=== PATIENT | female | born 1950 | race African-American/Black ===

== ENCOUNTER 2018-01-23 04:33 | Emergency (ER) | payer MEDICARE, OTHER ==
[~2018-01-23] VITALS: Ht 160 cm; Wt 100.0 kg
[2018-01-23] MEDS ORDERED: ONDANSETRON HCL 4MG/2ML VIAL IV STA (06:31)
[2018-01-23] MEDS ORDERED: SODIUM CHLORIDE 0.9% 1,000 ML IV ONE (06:31)
[2018-01-23 07:02] LABS: BASOPHILS % 0.7 % (0.0-2.0); EOSINOPHILS % 1.8 % (0.0-5.0); HEMATOCRIT. 39.5 % (36.0-48.0); HEMOGLOBIN. 13.6 g/dL (12.0-16.0); LYMPHOCYTES % 35.2 % (20.0-50.0); MEAN CORPUSCULAR HEMOGLOBIN 32.2 pg (28.0-32.0); MEAN CORPUSCULAR VOLUME 93.5 fL (81.0-99.0); MONOCYTES % 5.5 % (2.0-8.0); NEUTROPHILS % 56.8 % (40.0-76.0); PLATELET 225 x1000/uL (130-400); RED BLOOD CELL COUNT 4.22 mill/uL (4.2-5.4); RED CELL DISTRIBUTION WIDTH 13.4 % (11.6-14.6)
[2018-01-23 07:08] LABS: CHLORIDE 109 mEq/L (98-107)
[2018-01-23] MEDS ORDERED: KETOROLAC 30MG/ML VIAL IV ONE (07:45)
[2018-01-23 09:26] VITALS: BP 134/56
== END 2018-01-23 09:29 | disposition home or self-care (01) ==
LOC: ER 07:16
DX: R42 Dizziness and giddiness (principal); I10 Essential (primary) hypertension; F17.200 Nicotine dependence, unspecified, uncomplicated
CPT/HCPCS: 36415; 80053; 85025; 93005; 96361; 96374; 96375; 99285; 99406; J1885; J2405; J7030